=== PATIENT | male | born 2000 | race Two or more races ===

== ENCOUNTER 2023-04-06 12:16 | Emergency (ER) | payer OTHER ==
[~2023-04-06] VITALS: Ht 175.3 cm; Wt 90.5 kg
[2023-04-06 13:43] VITALS: BP 112/81
[2023-04-06] MEDS ORDERED: ACETAMINOPHEN 500 MG TAB PO ONE (14:00)
[2023-04-06] MEDS ORDERED: ONDANSETRON ODT 4 MG TAB PO ONE (14:00)
== END 2023-04-06 14:32 | disposition home or self-care (01) ==
LOC: ER 12:16
DX: Z77.098 Contact with and (suspected) exposure to other hazardous, chiefly nonmedicinal, chemicals (principal); R07.89 Other chest pain
CPT/HCPCS: 71046; 99283; Q0162